=== PATIENT | male | born 1970 | race Caucasian/White ===

== ENCOUNTER 2016-11-24 23:35 | Emergency (ER) | payer OTHER, MEDICARE ==
[~2016-11-24 23:35] MED LIST: AMBIEN5 MG PO; BACTRIM DS TAB1 EAC2 PO; BENADRYL25 M3 PO; BENZTROPINE MESY2 M1 PO; BUSPIRONE HCL15 M2 PO; CATAPRES0.3 M1 PO; CELEBREX PO; CEPHALEXIN500 M PO; CLARITIN10 M8 PO; CLONIDINE HCL0.1 M2 PO; COLACE100 M1 PO; CONZIP100 MG PO; CYMBALTA20 M1 PO; FLEXERIL10 MG PO; HYDROCODON-ACE1 EA17 PO; HYDROCODONE/APA1 CAP PO; HYDROXYZINE HCL25 M1 PO; IMITREX100 M2 PO; INDOMETHACIN50 M1 PO; INVEGA INJECTION INJ; INVEGA SUS78 MG/0.5 IM; KEFLEX500 M4 PO; LORTAB 5/500 TA1 TAB PO; MECLIZINE HCL25 M3 PO; MILK OF MAGNESIA PO; MINIPRESS1 MG PO; MIRALAX17 G2 PO; MOTRIN600 MG PO; NAPROSYN250 MG; NEURONTIN100 MG PO; NEURONTIN300 M1 PO; NEURONTIN300 MG PO; NEXIUM40 MG PO; NORCO 5/325 TAB1 TAB PO; NORCO 5/3251 TAB PO; OXYCODONE/APAP PO; PERCOCET 5/3251 TAB PO; PERCOCET 5MG/AP1 TAB PO; PERMETHRIN60 G1 TP; PROMETHAZINE HC25 M3 PO; PROTONIX40 M2 PO; RELAFEN500 MG PO; RIZATRIPTAN PO; SEROQUEL PO; SEROQUEL50 M1 PO; SEROQUEL50 MG PO; SUMATRIPTAN PO; SYMBICORT 160-1 PUFF INH; SYMBICORT 160-4.6 GM IH; THIAMINE HCL100 M2 PO; TRAMADOL HCL50 M2 PO; TRAZODONE; TRAZODONE HCL50 M1 PO; TRAZODONE50 MG PO; TYLENOL325 M1 PO; TYLENOL325 M2 PO; ULTRAM50 M1 PO; VALIUM5 MG PO; VENTOLIN HFA18 G2 PO; VENTOLIN HFA18 GM IH; VICODIN 5/500 T1 TAB PO; XANAX0.5 MG PO; XANAX1 M1 PO; XARELTO15 M1 PO; XARELTO20 M1 PO; ZANTAC300 M3 PO; ZOFRAN4 M1 PO; ZOMIG2.5 MG PO; [UNRECOGNIZED DRUG - OTHER] PO
== END 2016-11-25 01:53 ==
LOC: EDMED 23:35
DX: I82.5Z2 Chronic embolism and thrombosis of unspecified deep veins of left distal lower extremity (principal); F41.9 Anxiety disorder, unspecified; Z86.711 Personal history of pulmonary embolism; F43.10 Post-traumatic stress disorder, unspecified; Z98.890 Other specified postprocedural states; Z79.899 Other long term (current) drug therapy